=== PATIENT | female | born 1985 | race Caucasian/White ===

== ENCOUNTER 2016-04-16 09:30 | Inpatient (IN) | payer BC ==
[2016-04-16] VITALS (43 sets, daily range): BP systolic 80–155; BP diastolic 46–128; PULSE 72–162; RESP 18; TEMP 98–98.4
[~2016-04-16 09:30] MED LIST: TYLE3 PO
[2016-04-16] MEDS ORDERED: LACTATED RINGER'S 1000 ML INJ 1,000 ML IV PRN (10:14)
--- NOTE | 2016-04-16 10:14 | HHI.HP ---
HPI Chief Complaint My water broke Date Seen: Apr 16, 2016 Travel History International Travel<30 Days: No Contact w/Intl Traveler<30Days: No Known Affected Area: No History of Present Illness HPI This patient is 30-year-old white female at 38 weeks 6 days presents with spontaneous ruptured membranes is morning. She is also hellen. No bleeding noted she's patient Dr. Whitten for care. heart rate tracing is reactive and she is hellen. Amnio sure is positive. Para: 0 : 1 History Past Medical History Medical History: Denies Significant Hx Social History Alcohol Use: No Tobacco Use: No Substance Abuse: No Allergies-Medications Home Meds Active Scripts Acetaminophen/Codeine (Tylenol #3)300 Mg/30 Mg Tab1 Tab PO Q6HPRN #16 FOR PAIN Prov:Bobby Diaz Jr, MD 03/06/10 Review of Systems General / Constitutional: No: Fever, Weight Gain, Chills, Other Eyes: No: Diploplia, Blurred Vision, Visual changes, Pain, Photophobia HENT: No: Headaches, Vertigo, Lightheadedness Cardiovascular: No: Irregular Rhythm, Chest Pain or Discomfort, Palpitations, Tachycardia, Syncope, Varicosities, Edema, Cyanosis Respiratory: No: Cough, Short of Breath, Other Gastrointestinal: No: Nausea, Vomiting, Diarrhea Genitourinary: No: Decreased Urinary Output, Oliguria Musculoskeletal: No: Limited ROM, Weakness, Cramping, Edema, Pain Skin: No Rash, No Itching, No Dryness, No Lumps, No Change in Pigmentation, No Change in Nails, No Alopecia, No Lesions Neurologic: No: Weakness, Dizziness, Syncope, Focal Abnormalities, Coordination Problem, Headache, Slurred Speech, Seizures Psychiatric: No: Depression, Suicidal Ideations, Homicidal Ideation Endocrine: No: Heat Intolerance, Cold Intolerance, Polydipsia, Polyuria, Other Physical Exam Narrative GENERAL: Well-nourished, well-developed patient. SKIN: Warm and dry. HEAD: Normocephalic and atraumatic. EYES: No scleral icterus. No injection or drainage. ENT: No nasal drainage noted. Mucous membranes pink. Airway patent. NECK: Supple, trachea midline. No JVD. CARDIOVASCULAR: Regular rate and rhythm without murmurs, gallops, or rubs. RESPIRATORY: Breath sounds equal bilaterally. No accessory muscle use. BREASTS: Bilateral exam showed no masses , no retractions, no nipple discharge. ABDOMEN/GI: Abdomen soft, non-tender, bowel sounds present, no rebound, no guarding Gravid to [38-] weeks size Fundal Height: [37 cm-] GENITOURINARY: External Genitalia: intact and normal in appearance BUS glands: [-] Cervix: [-] Dilatation: [-3] Effacement: 80 Station: [-2] Presentation: [-vtx] Membranes: [ ruptured] amnio sure positive Uterine Contractions: [reg-] FHT's: Category: [-1] Baseline: [-144] Reactive: [yes-] Variability: [-mod] Decels: [none-] EXTREMITIES: No cyanosis or edema. BACK: Nontender without obvious deformity. No CVA tenderness. NEUROLOGICAL: Awake and alert. Motor and sensory grossly within normal limits. Five out of 5 muscle strength in all muscle groups. Normal speech. Data Data Orders Ob (2e) Additional Admit Info (04/16/16 10:09) Labs Amnio sure positive Assessment/Plan Assessment and Plan This patient is 30-year-old white female at 38-39 weeks presents with spontaneous rupture membranes and early labor. She is followed by Dr. Whitten for care. She denies bleeding or other symptoms. heart rate tracing is reactive contractions are noted she's 3 cm 80% -2 station is a change from her office visit she was 2 cm several days ago. Her amnio sure is positive,, GBS negative Plan is admit the patient for labor management and anticipate vaginal delivery Ras Cuello II, MD Apr 16, 2016 10:14
[2016-04-16] MEDS ORDERED: SODIUM CHLORID 0.9% 500 ML INJ 500 ML IV PRN (10:15)
[2016-04-16] MEDS ORDERED: LIDOCAINE HCL 1% 50 ML VIAL INFIL PRN (10:15)
[2016-04-16] MEDS ORDERED: LIDOCAINE HCL 1% 50 ML VIAL I-DERMAL PRN (10:15)
[2016-04-16] MEDS ORDERED: MINERAL OIL 10 ML VIAL TOPICAL PRN (10:15)
[2016-04-16] MEDS ORDERED: OXYTOCIN 30 UNITS-500ML PREMIX 500 ML IV ONE (10:15)
[2016-04-16] MEDS ORDERED: SODIUM CHLOR 0.9% 1000 ML INJ 1,000 ML IV PRN (10:34)
[2016-04-16] MEDS ORDERED: LACTATED RINGER'S 1000 ML INJ 1,000 ML IV SCH (11:00)
[2016-04-16] MEDS ORDERED: fentaNYL 2MCG-BUPIV 0.125% INJ 100 ML ONE (12:03)
[2016-04-16 12:09] LABS: AUTOMATED NEUTROPHIL # 7.2 TH/MM3 (1.8-7.7); BASOPHIL % 0.4 % (0.0-2.0); EOSINOPHIL % 0.3 % (0.0-4.0); HEMATOCRIT 38.4 % (35.0-46.0); HEMO FLAGS DIFF FINAL; LYMPH % 17.3 % (9.0-44.0); LYMPHOCYTE # 1.6 TH/MM3 (1.0-4.8); MEAN CORPUSCULAR HGB CONC 34.8 % (32.0-36.0); MONO % 5.4 % (0.0-8.0); NEUT % 76.6 % (16.0-70.0); PLATELET COUNT 211 TH/MM3 (150-450); RED BLOOD COUNT 4.18 MIL/MM3 (4.00-5.30); RED CELL DISTRIBUTION WIDTH 13.2 % (11.6-17.2); WHITE BLOOD COUNT 9.4 TH/MM3 (4.0-11.0)
[2016-04-16] MEDS ORDERED: ePHEDrine/NS 25 MG/5 ML SYR ONE (12:10)
[2016-04-16 12:22] LABS: BLOOD, URINE SMALL (NEG); COMMENT (UR) CULT NOT INDICATED; CULTURE IF INDICATED CULT NOT INDICATED; GLUCOSE,URINE NEG (NEG); KETONE, URINE NEG (NEG); MUCUS URINE FEW /lpf (OCC); NITRITE,URINE NEG (NEG); SQUAMOUS EPITHELIAL CELL URINE 1 /hpf (0-5); URINE COLOR YELLOW (YELLW/STRAW)
[2016-04-16] MEDS ORDERED: fentaNYL 2MCG-BUPIV 0.125% 100 ML EPIDURAL SCH (13:00)
[2016-04-16] MEDS ORDERED: NO SYSTEM NARCOTICS XX PRN (13:00)
[2016-04-16] MEDS ORDERED: DO NOT ADMINISTER ANTICOAGULANTS XX PRN (13:00)
[2016-04-16] MEDS ORDERED: ePHEDrine/NS 50 MG/5 ML SYR IV PRN (13:00)
[2016-04-16] MEDS ORDERED: MEASLES, MUMPS, RUBELLA VACCINE 0.5 ML VIAL SQ ONE (16:00)
[2016-04-16] MEDS ORDERED: DIPHTH/TETANUS/ACEL PERTUSSIS (BOOSTER) 0.5 ML VIAL/PFS IM ONE (16:00)
[2016-04-16] MEDS ORDERED: OXYTOCIN 10 UNIT/ML AMP ONE (18:07)
--- NOTE | 2016-04-16 18:25 | PD.OB.DELI ---
Delivery Date: Apr 16, 2016 Anesthesia: Epidural Episiotomy: Right mediolateral Vaginal Delivery: Normal, Vacuum Presentation: Occiput anterior Nuchal Cord: x1 Delayed cord clamping (45 sec): Yes Infant: Female, Single One Minute : 8 Five Minute : 9 Infant Care: Spontaneous crying, Responded to stimulation Placenta: Spontaneous delivery, Intact, 3 vessel cord Laceration: Episiotomy, 2 deg Repair: Chromic running Bobby Marino MD Apr 16, 2016 18:25
[2016-04-16] MEDS ORDERED: ZOLPIDEM TARTRATE 5 MG TAB PO PRN (18:30)
[2016-04-16] MEDS ORDERED: ONDANSETRON ODT 4 MG TAB PO PRN (18:30)
[2016-04-16] MEDS ORDERED: ALUMINUM/MAGNESIUM/SIMETH 30 ML CUP PO PRN (18:30)
[2016-04-16] MEDS ORDERED: BENZOCAINE 20% TOPICAL SPRAY 60 ML CAN TOPICAL PRN (18:30)
[2016-04-16] MEDS ORDERED: WITCH HAZEL 50%/GLYCERIN 12.5% 40 PAD JAR TOPICAL PRN (18:30)
[2016-04-16] MEDS ORDERED: DOCUSATE SODIUM 50 MG/SENNA 8.6 MG TAB PO PRN (18:30)
[2016-04-16] MEDS ORDERED: oxyCODONE/ACETAMINOPHEN 5 MG/325 MG TAB PO PRN ×2 (18:30)
[2016-04-16] MEDS ORDERED: ACETAMINOPHEN 325 MG TAB PO PRN (18:30)
[2016-04-16] MEDS ORDERED: SODIUM CHLORIDE 0.9% FLUSH 5 ML FLUSH IV PRN (18:30)
[2016-04-16] MEDS ORDERED: SODIUM CHLORIDE 0.9% FLUSH 5 ML FLUSH IV SCH (21:00)
[2016-04-17] MEDS: IBUPROFEN 600 MG TAB PO PRN ×3 (04:18→20:31)
[2016-04-17 08:19] VITALS: BP 101/68; PULSE 70; RESP 18; TEMP 98.6
--- NOTE | 2016-04-17 08:20 | HHI.OB ---
Subjective Post Day: 1 Remarks doing well. Objective Vitals/I&O Vital Signs Date Time Temp Pulse Resp B/P Pulse Ox O2 Delivery O2 Flow Rate FiO2 04/16/16 22:00 98.4 110 18 04/16/16 22:00 117/70 04/16/16 19:49 18 04/16/16 18:45 121 118/65 04/16/16 18:40 103 103/81 04/16/16 18:30 113 118/63 04/16/16 18:27 115 113/54 04/16/16 18:25 18 04/16/16 18:21 123 125/66 04/16/16 18:20 18 04/16/16 18:20 18 04/16/16 18:15 159 148/128 04/16/16 18:13 121 135/72 04/16/16 18:00 136 114/60 04/16/16 17:40 102 04/16/16 17:35 100 04/16/16 17:31 18 04/16/16 17:30 99 119/63 04/16/16 17:10 108 04/16/16 17:05 110 04/16/16 17:00 100 04/16/16 16:55 111 04/16/16 16:50 117 04/16/16 16:45 111 04/16/16 16:43 98.3 18 04/16/16 16:40 116 04/16/16 16:35 118 04/16/16 16:30 121 04/16/16 16:30 136/72 04/16/16 16:25 123 04/16/16 16:20 122 04/16/16 16:15 18 04/16/16 16:15 121 04/16/16 16:10 119 04/16/16 16:09 114 139/85 04/16/16 16:01 122 118/46 04/16/16 15:30 120 118/67 04/16/16 15:24 112 115/58 04/16/16 15:12 18 04/16/16 15:00 116 155/71 04/16/16 14:30 106 135/81 04/16/16 13:27 98.0 18 04/16/16 13:04 100 113/57 04/16/16 13:01 162 80/61 04/16/16 12:45 119 118/72 04/16/16 10:59 72 131/79 04/16/16 10:58 18 Objective Remarks GENERAL: Well-nourished, well-developed patient. ABDOMEN/GI: Abdomen soft, non-tender. Fundus: Firm, non-tender at umbilicus. GENITOURINARY: Light to moderate bleeding. EXTREMITIES: No cyanosis or edema, non-tender, without signs of DVT. Medications and IVs Current Medications Medications (Trade) Dose Ordered Sig/Jaleel Route Start Time Stop Time Status Last Admin (NS Flush) 2 ml BID IV 04/16/16 21:00 (NS Flush) 2 ml UNSCH PRN IV 04/16/16 18:30 (Tylenol) 650 mg Q4H PRN PO 04/16/16 18:30 (Motrin) 600 mg Q6H PRN PO 04/16/16 18:30 04/17/16 04:18 (Percocet 5-325 Mg) 1 tab Q4H PRN PO 04/16/16 18:30 (Percocet 5-325 Mg) 2 tab Q4H PRN PO 04/16/16 18:30 (Americaine 20% Top Spr) 1 spray Q4H PRN TOPICAL 04/16/16 18:30 04/16/16 21:42 (Tucks Pads) 1 applic QID PRN TOPICAL 04/16/16 18:30 04/16/16 21:42 (Gabby-Colace) 2 tab Q12H PRN PO 04/16/16 18:30 (Ambien) 5 mg HS PRN PO 04/16/16 18:30 (Mag-Al Plus Susp Liq) 15 ml Q8H PRN PO 04/16/16 18:30 (Zofran Odt) 4 mg Q6H PRN PO 04/16/16 18:30 Assessment/Plan Assessment and Plan Doing well Bobby Marino MD Apr 17, 2016 08:20
[2016-04-17] MEDS ORDERED: OXYC1TAB63 PO (08:22)
--- NOTE | 2016-04-17 08:22 | HHI.DCPOC ---
Discharge Care Plan Diagnosis: (1) Spontaneous vaginal delivery Report Symptoms to Your Doctor -Temperate above 100.5 degrees -Redness, of incision or excessive or foul smelling drainage -Unusual pain or calf pain -Increased vaginal bleeding -Painful or difficulty urinating -Feelings of extreme sadness or anxiety after 2 weeks Goals to Promote Your Health * To prevent worsening of your condition and complications * To maintain your health at the optimal level Directions to Meet Your Goals Take your medications as prescribed Follow your dietary instruction Follow activity as directed Ensure plenty of rest for recovery Drink fluids for hydration Keep your appointments as scheduled Take your immunizations and boosters as scheduled If your symptoms worsen call your PCP, if no PCP go to Urgent Care Center or Emergency Room Smoking is Dangerous to Your Health. Avoid second hand smoke Call the 24-hour crisis hotline for domestic abuse at Bobby Marino MD Apr 17, 2016 08:22
[2016-04-17 19:28] VITALS: BP 118/65; PULSE 83; RESP 17; TEMP 97.9
[2016-04-18] MEDS: IBUPROFEN 600 MG TAB PO PRN (03:58)
[2016-04-18 07:47] VITALS: BP 117/70; PULSE 77; RESP 18; TEMP 98.5
--- NOTE | 2016-04-18 08:04 | HHI.OB ---
Subjective Post Day: 1 Remarks doing well Objective Vitals/I&O Vital Signs Date Time Temp Pulse Resp B/P Pulse Ox O2 Delivery O2 Flow Rate FiO2 04/18/16 07:47 98.5 04/18/16 07:47 77 18 117/70 04/17/16 19:28 83 118/65 04/17/16 19:28 97.9 17 04/17/16 08:19 101/68 04/17/16 08:19 98.6 70 18 Objective Remarks GENERAL: Well-nourished, well-developed patient. ABDOMEN/GI: Abdomen soft, non-tender. Fundus: Firm, non-tender at umbilicus. GENITOURINARY: Light to moderate bleeding. EXTREMITIES: No cyanosis or edema, non-tender, without signs of DVT. Medications and IVs Current Medications Medications (Trade) Dose Ordered Sig/Jaleel Route Start Time Stop Time Status Last Admin (NS Flush) 2 ml BID IV 04/16/16 21:00 (NS Flush) 2 ml UNSCH PRN IV 04/16/16 18:30 (Tylenol) 650 mg Q4H PRN PO 04/16/16 18:30 (Motrin) 600 mg Q6H PRN PO 04/16/16 18:30 04/18/16 03:58 (Percocet 5-325 Mg) 1 tab Q4H PRN PO 04/16/16 18:30 (Percocet 5-325 Mg) 2 tab Q4H PRN PO 04/16/16 18:30 (Americaine 20% Top Spr) 1 spray Q4H PRN TOPICAL 04/16/16 18:30 04/16/16 21:42 (Tucks Pads) 1 applic QID PRN TOPICAL 04/16/16 18:30 04/16/16 21:42 (Gabby-Colace) 2 tab Q12H PRN PO 04/16/16 18:30 04/17/16 20:31 (Ambien) 5 mg HS PRN PO 04/16/16 18:30 (Mag-Al Plus Susp Liq) 15 ml Q8H PRN PO 04/16/16 18:30 (Zofran Odt) 4 mg Q6H PRN PO 04/16/16 18:30 Assessment/Plan Problem List: (1) Spontaneous vaginal delivery Assessment and Plan dc home MarinoBobby brody MD Apr 18, 2016 08:04
--- NOTE | 2016-04-18 08:07 | HHI.DS ---
Admission Date Apr 16, 2016 at 10:12 Discharge Date: Apr 18, 2016 Admitting Diagnosis Diagnosis: (1) Spontaneous vaginal delivery Diagnosis: Principal Delivery Date: Apr 16, 2016 Vaginal Delivery: Normal, Spontaneous : Female, Single Brief History This patient is 30-year-old white female at 38 weeks 6 days presents with spontaneous ruptured membranes is morning. She is also hellen. No bleeding noted she's patient Dr. Whitten for care. heart rate tracing is reactive and she is hellen. Amnio sure is positive. Hospital Course doing well and ok to dc home Pt Condition on Discharge: Good Discharge Disposition: Discharge Home Discharge Instructions Diet Instructions: As Tolerated, No Restrictions Activities You Can Perform: Pelvic Rest Follow up Referrals: [facility] - 2 Weeks @ [facility] with oBbby Marino MD New Medications: Oxycodone-Acetaminophen (Oxycodone-Acetaminophen) 5-325 mg Tab 1 TAB PO Q4H PRN PAIN SCALE 3 TO 5 #20 TAB Continued Medications: Acetaminophen/Codeine (Tylenol #3) 300 Mg/30 Mg Tab 1 TAB PO Q6HPRN FOR PAIN #16 Bobby Marino MD Apr 18, 2016 08:07
== END 2016-04-18 10:46 | disposition home or self-care (01) | DRG 775 ==
LOC: HOBED 09:30 → H2EB 10:12 → H1EA 20:14
PROVIDERS: ADMIT Obstetrics & Gynecology; ATTEND Obstetrics & Gynecology
PROC: 10E0XZZ Delivery of Products of Conception, External Approach (ICD-10-PCS; principal; 2016-04-16)
PROC: 0KQM0ZZ Repair Perineum Muscle, Open Approach (ICD-10-PCS; 2016-04-16)
PROC: 00HU33Z Insertion of Infusion Device into Spinal Canal, Percutaneous Approach (ICD-10-PCS; 2016-04-16)
PROC: 3E0R3CZ (ICD-10-PCS; 2016-04-16)
PROC: 0W8NXZZ Division of Female Perineum, External Approach (ICD-10-PCS; 2016-04-16)
DX: O70.1 Second degree perineal laceration during delivery (principal); O69.81X0 Labor and delivery complicated by cord around neck, without compression, not applicable or unspecified; Z3A.38 38 weeks gestation of pregnancy; Z37.0 Single live birth
CPT/HCPCS: 81001; 84112; 85025; 86900; 86901; 99285; J2590; J3010; J7120